=== PATIENT | male | born 1990 | race Two or more races ===

== ENCOUNTER 2020-09-25 18:36 | Emergency (ER) | payer OTHER ==
[~2020-09-25] VITALS: Ht 170.2 cm; Wt 89.0 kg
[2020-09-25] MEDS ORDERED: LEVE500T53 PO (19:13)
[2020-09-25] MEDS ORDERED: METH-639 PO (19:14)
[2020-09-25] MEDS ORDERED: ENOX30SY4 SC (19:16)
[2020-09-25] MEDS ORDERED: MORPHINE SULFATE 4 MG/ML, 1ML IVPush PRN (19:30)
[2020-09-25] MEDS ORDERED: ONDANSETRON 2MG/ML, 2ML IVPush ONE (19:30)
[2020-09-25] MEDS ORDERED: SODIUM CHLORIDE FLUSH 10ML SYR IVF ONE (19:30)
[2020-09-25] MEDS ORDERED: MORPHINE SULFATE 4 MG/ML, 1ML ONE (19:53)
[2020-09-25] MEDS ORDERED: ONDANSETRON 2MG/ML, 2ML ONE (19:53)
[2020-09-25] MEDS ORDERED: OMNIPAQUE 350 MG/ML, 100ML BOTTLE ONE (20:00)
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
[2020-09-25 20:05] LABS: BASOPHILS % (AUTO) 1 % (0-1); EOSINOPHILS % (AUTO) 1 % (1-7); LYMPHOCYTES % (AUTO) 22 % (22-44); MEAN CORPUSCULAR HEMOGLOBIN 29.9 pg (27.5-34.5); MEAN CORPUSCULAR HGB CONC 33.7 g/dL (33.2-36.2); MEAN PLATELET VOLUME 10.4 fL (7.4-10.4); MONOCYTES % (AUTO) 9 % (2-9); NEUTROPHILS % (AUTO) 68 % (42-75); PLATELET COUNT 230 x10^3/uL (130-400); RED BLOOD COUNT 4.16 x10^6/uL (4.38-5.82); RED CELL DISTRIBUTION WIDTH 13.8 % (9.4-14.8)
[2020-09-25 20:07] LABS: MD NO
[2020-09-25 20:09] LABS: ALANINE AMINOTRANSFERASE 101 U/L (12-78); ALBUMIN 3.9 g/dL (3.4-5.0); ANION GAP 4 mmol/L (5-15); CHLORIDE 106 mmol/L (98-107); CREATININE 1.11 mg/dL (0.7-1.3)
[2020-09-25 20:11] LABS: ALKALINE PHOSPHATASE 120 U/L (45-117); BILIRUBIN,TOTAL 0.6 mg/dL (0.2-1.0); TOTAL PROTEIN 8.3 g/dL (6.4-8.2)
[2020-09-25] MEDS ORDERED: ONDANSETRON ODT 4 MG PO ONE (21:00)
[2020-09-25] MEDS ORDERED: OXYcodone IR 5MG TABLET PO ONE (21:00)
[2020-09-25] MEDS ORDERED: OXYcodone IR 5MG TABLET ONE (21:28)
[2020-09-25 21:38] VITALS: BP 111/68
== END 2020-09-25 21:53 | disposition home or self-care (01) ==
LOC: ED 19:02
DX: R07.81 Pleurodynia (principal); Z48.00 Encounter for change or removal of nonsurgical wound dressing; R10.9 Unspecified abdominal pain
CPT/HCPCS: 36415; 71045; 73030; 74177; 80053; 85025; 93005; 96374; 96375; 99285; J2270; J2405; Q9967

== ENCOUNTER 2020-10-06 22:51 | Emergency (ER) | payer OTHER ==
[~2020-10-06] VITALS: Ht 170.2 cm; Wt 84.0 kg
[~2020-10-06 22:51] MED LIST: ENOX30SY4 SC; LEVE500T53 PO; METH-639 PO
[2020-10-06 22:53] VITALS: BP 114/74
[2020-10-06] MEDS ORDERED: HYDROcodone/APAP 7.5-325MG/15ML UDC PO STA ×2 (23:23→23:48)
[2020-10-06] MEDS ORDERED: HYDROcodone/APAP 7.5-325MG/15ML UDC ONE (23:44)
== END 2020-10-07 00:38 | disposition home or self-care (01) ==
LOC: ED 23:33
DX: L89.90 Pressure ulcer of unspecified site, unspecified stage (principal); G89.29 Other chronic pain; M25.572 Pain in left ankle and joints of left foot; Z76.0 Encounter for issue of repeat prescription
CPT/HCPCS: 99283

== ENCOUNTER 2020-10-12 19:38 | Emergency (ER) | payer OTHER ==
[~2020-10-12] VITALS: Ht 170.2 cm; Wt 90.8 kg
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
[2020-10-12] MEDS ORDERED: OXYcodone/APAP 5/325MG TABLET PO ONE (21:30)
[2020-10-12] MEDS ORDERED: OXYcodone/APAP 5/325MG TABLET ONE (21:31)
[2020-10-12 22:50] VITALS: BP 135/91
== END 2020-10-12 22:52 | disposition home or self-care (01) ==
LOC: ED 22:24
DX: R51.9 Headache, unspecified (principal); M79.662 Pain in left lower leg; R68.84 Jaw pain; K13.79 Other lesions of oral mucosa; Z76.0 Encounter for issue of repeat prescription
CPT/HCPCS: 99283

== ENCOUNTER 2020-10-14 08:23 | Emergency (ER) | payer OTHER ==
[~2020-10-14] VITALS: Ht 170.2 cm; Wt 90.0 kg
[2020-10-14] MEDS ORDERED: OXYcodone/APAP 10/325MG TABLET PO ONE (09:00)
[2020-10-14] MEDS ORDERED: OXYcodone/APAP 10/325MG TABLET ONE (09:02)
--- NOTE | 2020-10-14 09:10 | NUR ---
PT MEDICATED PER OCT FOR MOUTH PAIN
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
[2020-10-14 10:07] VITALS: BP 108/66
--- NOTE | 2020-10-14 10:46 | NUR ---
break rn- dc istructions reviewed.
== END 2020-10-14 10:52 | disposition home or self-care (01) ==
LOC: ED 08:53
DX: K08.89 Other specified disorders of teeth and supporting structures (principal); Z87.891 Personal history of nicotine dependence
CPT/HCPCS: 99283

== ENCOUNTER 2020-10-27 22:04 | Emergency (ER) | payer OTHER ==
[~2020-10-27] VITALS: Ht 170.2 cm; Wt 78.9 kg
[2020-10-27 22:13] VITALS: BP 149/111
[2020-10-27] MEDS ORDERED: HYDROcodone/APAP 5/325 TABLET ONE (22:53)
[2020-10-27] MEDS ORDERED: HYDROcodone/APAP 5/325 TABLET PO ONE (23:00)
== END 2020-10-28 00:36 | disposition home or self-care (01) ==
LOC: ED 10-28 00:10
DX: S32.050A Wedge compression fracture of fifth lumbar vertebra, initial encounter for closed fracture (principal); S16.1XXA Strain of muscle, fascia and tendon at neck level, initial encounter; G89.11 Acute pain due to trauma; M54.6 Pain in thoracic spine; Z87.891 Personal history of nicotine dependence; V43.52XA Car driver injured in collision with other type car in traffic accident, initial encounter; Y93.89 Activity, other specified; Y92.89 Other specified places as the place of occurrence of the external cause; Y99.8 Other external cause status
CPT/HCPCS: 72050; 72072; 72110; 99284

== ENCOUNTER 2020-11-27 01:10 | Emergency (ER) | payer OTHER ==
[~2020-11-27] VITALS: Ht 170.2 cm; Wt 85.0 kg
[2020-11-27 01:12] VITALS: BP 121/85
[2020-11-27] MEDS ORDERED: CEPHALEXIN 500 MG CAPSULE PO ONE (01:30)
[2020-11-27] MEDS ORDERED: SULFAMETH./TRIMETHOPRIM DS 800MG/160MG TABLET PO ONE (01:30)
[2020-11-27] MEDS ORDERED: HYDROcodone/APAP 5/325 TABLET PO ONE (02:00)
[2020-11-27] MEDS ORDERED: KETOROLAC 30 MG/1 ML IM ONE (02:00)
[2020-11-27] MEDS ORDERED: HYDROcodone/APAP 5/325 TABLET ONE (02:00)
[2020-11-27] MEDS ORDERED: KETOROLAC 30 MG/1 ML ONE (02:00)
== END 2020-11-27 03:02 | disposition home or self-care (01) ==
LOC: ED 02:50
DX: S32.059A Unspecified fracture of fifth lumbar vertebra, initial encounter for closed fracture (principal); M54.5 Low back pain; M25.572 Pain in left ankle and joints of left foot; Z87.891 Personal history of nicotine dependence; W01.0XXA Fall on same level from slipping, tripping and stumbling without subsequent striking against object, initial encounter; Y93.89 Activity, other specified; Y92.89 Other specified places as the place of occurrence of the external cause; Y99.8 Other external cause status
CPT/HCPCS: 72110; 73610; 96372; 99284; J1885